=== PATIENT | male | born 1940 | race Caucasian/White ===

== ENCOUNTER → 2017-12-06 | Outpatient (CLI) | payer MEDICARE ==
[~2017-12-06] MED LIST: AMLO10TA2 PO; ASPI-891 PO; CALC600T12 PO; CALC667T5 PO; CELE-84 PO; CLOP75TA32 PO; FISH1CAP63 PO; GABA-531 PO; LOSA50TA37 PO; MULT-1077 PO; PANT40TA PO; POTA99TA4 PO; PRIM50TA29 PO; REGADENOSON 0.4 MG/5 ML PF SYG IVP SCH; ROSU20TA PO; TRAZ-147 PO; VIT B12 PO
== END | disposition home or self-care (01) ==
LOC: SHCH 08:54
PROVIDERS: ATTEND Internal Medicine Cardiovascular Disease
DX: I10 Essential (primary) hypertension (principal); I20.9 Angina pectoris, unspecified
CPT/HCPCS: 78452; 93017; 96374; A9500 ×2; J2785

== ENCOUNTER → 2018-01-04 | Outpatient (CLI) | payer MEDICARE ==
[~2018-01-04] MED LIST changes: -REGADENOSON 0.4 MG/5 ML PF SYG IVP SCH
== END | disposition home or self-care (01) ==
LOC: RAH 13:43
PROVIDERS: ATTEND Nurse Practitioner Adult Health
DX: I35.0 Nonrheumatic aortic (valve) stenosis (principal); I70.90 Unspecified atherosclerosis; M79.89 Other specified soft tissue disorders; R06.02 Shortness of breath; R91.8 Other nonspecific abnormal finding of lung field
CPT/HCPCS: 71046; 93970

== ENCOUNTER 2018-01-07 08:18 | Day surgery (SDC) | payer MEDICARE ==
[~2018-01-07] VITALS: Ht 165.1 cm; Wt 71.9 kg
[~2018-01-07 08:18] MED LIST changes: +SODIUM CHLORIDE 0.9% 1000ML 1,000 ML IV ONE
[2018-01-07 09:50] VITALS: BP 140/68
[2018-01-07] MEDS ORDERED: PROPOFOL 10 MG/ML 20ML VIAL IV ONE ×2 (10:28)
[2018-01-07 10:51] VITALS: BP 111/46
== END 2018-01-07 11:35 ==
LOC: DAH 08:18
PROVIDERS: ATTEND Internal Medicine Gastroenterology
DX: K55.20 Angiodysplasia of colon without hemorrhage (principal); K57.30 Diverticulosis of large intestine without perforation or abscess without bleeding; K21.9 Gastro-esophageal reflux disease without esophagitis; K62.7 Radiation proctitis; D50.0 Iron deficiency anemia secondary to blood loss (chronic); I10 Essential (primary) hypertension; E78.5 Hyperlipidemia, unspecified; Z85.46 Personal history of malignant neoplasm of prostate; Z92.3 Personal history of irradiation; Z86.73 Personal history of transient ischemic attack (TIA), and cerebral infarction without residual deficits; K29.70 Gastritis, unspecified, without bleeding
CPT/HCPCS: 43239; 45334; 88305; 88312; 88342; 93005; A4606; J2704 ×2; J7030

== ENCOUNTER → 2018-01-13 | Outpatient (CLI) | payer MEDICARE ==
[~2018-01-13] MED LIST changes: -SODIUM CHLORIDE 0.9% 1000ML 1,000 ML IV ONE
== END | disposition home or self-care (01) ==
LOC: RAH 09:44
PROVIDERS: ATTEND Internal Medicine Gastroenterology
DX: K80.20 Calculus of gallbladder without cholecystitis without obstruction (principal); E88.89 Other specified metabolic disorders
CPT/HCPCS: 76700

== ENCOUNTER → 2018-02-04 | Outpatient (CLI) | payer MEDICARE | END | disposition home or self-care (01) | LOC: RAH 07:31 | PROVIDERS: ATTEND Internal Medicine | DX: J84.10 Pulmonary fibrosis, unspecified (principal); J47.9 Bronchiectasis, uncomplicated; K80.20 Calculus of gallbladder without cholecystitis without obstruction | CPT/HCPCS: 71250 ==

== ENCOUNTER → 2018-02-16 | Outpatient (CLI) | payer MEDICARE ==
[~2018-02-16] MED LIST changes: +ALBUTEROL SULFATE 0.083% 2.5 MG/3 ML INH IH ONE
== END | disposition home or self-care (01) ==
LOC: RESP 08:56
PROVIDERS: ATTEND Internal Medicine
DX: J44.9 Chronic obstructive pulmonary disease, unspecified (principal)
CPT/HCPCS: 94060; 94727; 94729

== ENCOUNTER → 2018-08-16 | Outpatient (CLI) | payer MEDICARE ==
[~2018-08-16] MED LIST changes: -ALBUTEROL SULFATE 0.083% 2.5 MG/3 ML INH IH ONE; -AMLO10TA2 PO; -ASPI-891 PO; -CALC600T12 PO; -CLOP75TA32 PO; -FISH1CAP63 PO; +FURO20TA4 PO; -LOSA50TA37 PO; -MULT-1077 PO; -PANT40TA PO; -POTA99TA4 PO; +PRED5TAB PO; +ROPI0.5T5 PO; -ROSU20TA PO; +SUCR1TAB2 PO; -TRAZ-147 PO; +TRAZ-187 PO; -VIT B12 PO
== END | disposition home or self-care (01) ==
LOC: RAH 07:37
PROVIDERS: ATTEND Nurse Practitioner Adult Health
DX: G93.0 Cerebral cysts (principal); G31.9 Degenerative disease of nervous system, unspecified; G93.89 Other specified disorders of brain; I10 Essential (primary) hypertension; E78.5 Hyperlipidemia, unspecified; Z72.89 Other problems related to lifestyle
CPT/HCPCS: 70551

== ENCOUNTER → 2018-08-31 | Outpatient (CLI) | payer MEDICARE | END | disposition home or self-care (01) | LOC: RAH 10:39 | PROVIDERS: ATTEND Nurse Practitioner Adult Health | DX: M51.37 Other intervertebral disc degeneration, lumbosacral region (principal); M48.061 Spinal stenosis, lumbar region without neurogenic claudication; N28.1 Cyst of kidney, acquired; M46.96 Unspecified inflammatory spondylopathy, lumbar region; M62.50 Muscle wasting and atrophy, not elsewhere classified, unspecified site; I10 Essential (primary) hypertension; E78.5 Hyperlipidemia, unspecified | CPT/HCPCS: 72148 ==

== ENCOUNTER 2019-03-21 12:25 | Inpatient (IN) | payer MEDICARE ==
[~2019-03-21] VITALS: Ht 172.7 cm; Wt 63.5 kg
[2019-03-21] MEDS ORDERED: CEFTRIAXONE SODIUM 1 GM ONE (13:10)
[2019-03-21] MEDS ORDERED: LEVOFLOXACIN 500 MG/D5W 100 ML 0 ML ONE (13:10)
[2019-03-21] MEDS ORDERED: ACETAMINOPHEN 325 MG TAB ONE (13:10)
[2019-03-21] MEDS ORDERED: SODIUM CHLORIDE 0.9% 100 ML IV ONE (13:11)
[2019-03-21 13:16] LABS: EOSINOPHILS % (AUTO) 0.3 % (0.0-8.0); NUCLEATED RED BLOOD CELLS 0.1 % (0.0-0.19)
[2019-03-21] MEDS ORDERED: LEVOFLOXACIN 750 MG/D5W 150 ML 150 ML ONE (13:20)
[2019-03-21 13:29] LABS: INR 1.02 (0.85-1.15); PARTIAL THROMBOPLASTIN TIME 26.6 SEC (26.3-35.5); POTASSIUM 4.5 mmol/L (3.5-5.1); PROTHROMBIN TIME 10.7 SEC (9.6-11.6)
[2019-03-21 13:36] LABS: APPEARANCE,URINE Clear (CLEAR); BILIRUBIN,URINE Negative (NEGATIVE); COLOR,URINE Yellow (YELLOW); GLUCOSE, URINE (UA) Negative (NEGATIVE); KETONES,URINE Negative (NEGATIVE); LEUKOCYTE ESTERASE ,URINE Negative (NEGATIVE); NITRATE,URINE Negative (NEGATIVE); OCCULT BLOOD,URINE Nonhemolyzed Trace (NEGATIVE); PROTEIN,URINE 300 mg/dL (NEGATIVE)
[2019-03-21 13:37] LABS: BASOPHILS % (AUTO) 0.2 % (0.0-5.0); HEMATOCRIT 46.9 % (42-54); LYMPHOCYTES % (AUTO) 6.4 % (21.0-51.0); MEAN CORPUSCULAR HEMOGLOBIN 32.1 pg (27.0-33.0); MEAN CORPUSCULAR HGB CONC 33.3 g/dL (32.0-36.0); MEAN CORPUSCULAR VOLUME 96.3 fL (79-99); MONOCYTES % (AUTO) 4.5 % (3.0-13.0); NEUTROPHILS % (AUTO) 88.6 % (40.0-77.0); PLATELET COUNT (AUTO) 196 K/uL (130-400); RED BLOOD CELL COUNT(AUTO) 4.87 MIL/uL (4.50-6.20); RED CELL DISTRIBUTION WIDTH 14.8 % (11.0-15.5); WHITE BLOOD COUNT (AUTO) 18.5 K/uL (4.8-10.8)
[2019-03-21 13:43] LABS: ALBUMIN 2.8 g/dL (3.5-5.0); BILIRUBIN,TOTAL 0.5 mg/dL (0.2-1.0); TOTAL PROTEIN, SERUM 8.2 g/dL (6.0-8.3); TROPONIN I 0.09 ng/mL (0.00-0.06)
[2019-03-21 14:07] LABS: BACTERIA,URINE Rare /HPF (None Seen); RBC,URINE 0-1 /HPF (0-1); SQUAMOUS EPITHELIAL CELL,UR 0-2 /HPF (0-2); WBC,URINE 0-1 /HPF (0-1)
[2019-03-21] MEDS ORDERED: AZITHROMYCIN 500MG+NS 250ML 250 ML IV SCH (15:15)
[2019-03-21] MEDS ORDERED: HYDRALAZINE HCL 20 MG/ML VIAL IV PRN (15:15)
[2019-03-21 17:05] VITALS: BP 133/75
[2019-03-21] MEDS: IPRATROPIUM/ALBUTEROL SULFATE 3 ML SOLUTION IH SCH ×2 (18:06→21:43)
[2019-03-21] MEDS ORDERED: METO-408 PO (18:39)
[2019-03-21] MEDS ORDERED: FINA5TAB41 PO (18:39)
[2019-03-21] MEDS ORDERED: NIFE30TA91 PO (18:39)
[2019-03-21] MEDS ORDERED: TRAM50TA4 PO (18:39)
[2019-03-21] MEDS ORDERED: PANT40TA25 PO (18:39)
[2019-03-21] MEDS ORDERED: ASPI-891 PO (18:39)
[2019-03-21] MEDS ORDERED: ATOR20TA65 PO (18:39)
[2019-03-21 19:22] VITALS: BP 161/71
[2019-03-21] MEDS: FAMOTIDINE 20MG TAB 20 MG TAB PO SCH (21:09)
[2019-03-21] MEDS: AZITHROMYCIN 500MG+NS 250ML 250 ML IV SCH (21:09)
[2019-03-21] MEDS: GUAIFENESIN 600 MG TABLET.ER PO SCH (21:09)
[2019-03-22] VITALS (7 sets, daily range): BP systolic 99–161; BP diastolic 52–95
[2019-03-22] MEDS: IPRATROPIUM/ALBUTEROL SULFATE 3 ML SOLUTION IH SCH ×6 (01:08→21:17)
--- NOTE | 2019-03-22 04:04 | NUR ---
PAIN Paged Jerod JACKSON,pt c/o headache.Tylenol ordered.He said he will review pt.s home meds entered in [facility].
[2019-03-22] MEDS ORDERED: ACETAMINOPHEN 325 MG TAB PO PRN (04:15)
[2019-03-22] MEDS ORDERED: TRAMADOL HCL 50 MG TABLET PO PRN (04:15)
[2019-03-22 05:04] LABS: HEMATOCRIT 44.1 % (42-54); MEAN CORPUSCULAR HEMOGLOBIN 31.1 pg (27.0-33.0); MEAN CORPUSCULAR HGB CONC 32.6 g/dL (32.0-36.0); MEAN CORPUSCULAR VOLUME 95.4 fL (79-99); PLATELET COUNT (AUTO) 213 K/uL (130-400); RED BLOOD CELL COUNT(AUTO) 4.62 MIL/uL (4.50-6.20); RED CELL DISTRIBUTION WIDTH 14.9 % (11.0-15.5); WHITE BLOOD COUNT (AUTO) 15.6 K/uL (4.8-10.8)
[2019-03-22 05:05] LABS: CREATININE 0.9 mg/dL (0.5-1.5); POTASSIUM 3.7 mmol/L (3.5-5.1)
--- NOTE | 2019-03-22 07:04 | NUR ---
MD Dr Sundar travis,informed of pt.s heart rate 130's,she ordered telemetry.
[2019-03-22] MEDS: ASPIRIN 325MG EC TAB 325 MG TABLET.DR PO SCH (09:00)
[2019-03-22] MEDS: GUAIFENESIN 600 MG TABLET.ER PO SCH ×2 (09:00→21:02)
[2019-03-22] MEDS: PRIMIDONE 50 MG TAB PO SCH ×2 (09:00→21:03)
[2019-03-22] MEDS: NIFEDIPINE ER 30 MG TAB PO SCH (09:00)
[2019-03-22] MEDS ORDERED: FINASTERIDE 5 MG TABLET PO SCH (09:00)
[2019-03-22] MEDS: GABAPENTIN 300 MG CAPSULE PO SCH (09:00)
[2019-03-22] MEDS ORDERED: TRAZODONE HCL 100 MG TABLET PO SCH (09:00)
[2019-03-22] MEDS: FAMOTIDINE 20MG TAB 20 MG TAB PO SCH ×2 (09:00→21:03)
[2019-03-22] MEDS: METOPROLOL TARTRATE 25 MG TAB PO SCH ×2 (09:00→21:02)
[2019-03-22] MEDS: PREDNISONE 5 MG TABLET PO SCH ×2 (09:00→21:03)
[2019-03-22] MEDS ORDERED: ENOXAPARIN SODIUM 40 MG/0.4 ML SYRINGE SQ SCH (09:00)
--- NOTE | 2019-03-22 10:00 | NUR ---
DYSPHAGIA EVAL COMPLETE. -S/S OF ASPIRATION. RECOMMEND MECHANICAL SOFT/CHOPPED, THIN LIQUID DIET; PILLS WHOLE WITH LIQUIDS. MBSS RECOMMENDED AT THIS TIME. PATIENT INFORMATION: Pt IS A 78 Y.O. MALE REFERRED FOR A BEDSIDE DYSPHAGIA EVALUATION SECONDARY TO C/O DIFFICULTY SWALLOWING FOODS AND LIQUIDS. AT BEDSIDE AND REPORTS Pt HAS INCREASED DIFFICULTY IN THE AFTERNOON DURING SUPPER. Pt CURRENTLY ADMITTED SECONDARY TO BRONCHITIS AND SHORTNESS OF BREATH. Pt HAS A PAST MEDICAL HISTORY SIGNIFICANT FOR CHRONIC INTERMITTENT DYSPHAGIA, POLYMYOSITIS, PULMONARY FIBROSIS, HYPERTENSION, HYPERLIPIDEMIA, DEPRESSION, GERD, BPH, PROSTATE CANCER, AND SLEEP APNEA. Pt WITH BASELINE HORSED VOCAL QUALITY AND WEAKNESS. REPORTS SHE HAS TO ASSIST Pt MANUALLY TO COUGH. EVALUATION: Pt PRESENTS WITH MILD PHARYNGEAL DYSPHAGIA CAUSED BY DELAYED PHARYNGEAL RESPONSE TIME WITH MULTIPLE SWALLOWS PER BOLUS. Pt WITH NO OVERT S/S OF ASPIRATION AT BEDSIDE. MBSS IS RECOMMENDED TO RULE OUT SILENT ASPIRATION. RECOMMENDATIONS: 1. MECHANICAL SOFT/CHOPPED, THIN LIQUID DIET; PILLS WHOLE WITH LIQUIDS. 2. COMPENSATORY STRATEGIES (PROPHYLAXIS): *SEATED AT 90 DEGREE ANGLE *ALTERNATE BITES AND SIPS *SLOW RATE *REMAIN UPRIGHT 30 MINUTES AFTER MEAL TIMES 3. MBSS G-CODES SWALLOWING: [id number] Addendum: 03/22/19 at 1225 by MOISÉS CRISTINA [facility] Amended: Links added.
[2019-03-22] MEDS: CEFTRIAXONE SODIUM 1 GM IVP SCH (10:45)
[2019-03-22] MEDS ORDERED: METOPROLOL TARTRATE 1 MG/ML 5ML VIAL IV PRN (11:24)
--- NOTE | 2019-03-22 12:26 | NUR ---
MBSS COMPLETE. -S/S OF ASPIRATION. RECOMMEND MECHANICAL SOFT/CHOPPED, THIN LIQUID DIET; PILLS WHOLE WITH LIQUIDS. PATIENT INFORMATION: Pt IS A 78 Y.O. MALE REFERRED FOR AN MBSS SECONDARY TO C/O DIFFICULTY SWALLOWING FOODS AND LIQUIDS. REPORTS Pt HAS INCREASED DIFFICULTY IN THE AFTERNOON DURING SUPPER. Pt CURRENTLY ADMITTED SECONDARY TO BRONCHITIS AND SHORTNESS OF BREATH. Pt HAS A PAST MEDICAL HISTORY SIGNIFICANT FOR CHRONIC INTERMITTENT DYSPHAGIA, POLYMYOSITIS, PULMONARY FIBROSIS, HYPERTENSION, HYPERLIPIDEMIA, DEPRESSION, GERD, BPH, PROSTATE CANCER, AND SLEEP APNEA. Pt WITH BASELINE HORSED VOCAL QUALITY AND WEAKNESS. REPORTS SHE HAS TO ASSIST Pt MANUALLY TO COUGH. MBSS INTERPRETATION: Pt PRESENTS WITH MILD PHARYNGEAL DYSPHAGIA CAUSED BY DELAYED PHARYNGEAL RESPONSE TIME, DECREASED PRESSURE GENERATION WITHIN THE PHARYNX, AND ENLARGED CRICOPHARYNGEUS MUSCLE WITH POSSIBLE BEGINNING OF ZENKER'S DIVERTICULUM, EVIDENCED BY POOLING IN THE VALLECULAE, MULTIPLE SWALLOWS PER BOLUS, RESIDUE IN POSTERIOR PHARYNGEAL WALL AND POOLING ABOVE CRICOPHARYNGEUS MUSCLE (NOT CLEARED WITH RE-SWALLOW). NO PENETRATION OR ASPIRATION PRESENT AT THE TIME OF THE MBSS. PLEASE NOTE Pt PRESENTS WITH INSTRUMENTATION AT C5-C7. TRIALS: 1. TSP PUREED: POOLING IN VALLECULAE AND ABOVE UES 2. TSP PUDDING: POOLING IN VALLECULAE AND ABOVE UES 3. THIN LIQUIDS VIA CUP SIP: CLEARED MOST OF POOLED RESIDUE IN VALLECULAE WITH SOME RESIDUE ABOVE UES 4. TSP MIXED TEXTURE: GOOD 5. THIN LIQUIDS VIA CUPS SIP: GOOD WITH SOME RESIDUE ABOVE UES RECOMMENDATIONS: 1. MECHANICAL SOFT/CHOPPED, THIN LIQUID DIET; PILLS WHOLE WITH LIQUIDS. 2. COMPENSATORY STRATEGIES (PROPHYLAXIS): *SEATED AT 90 DEGREE ANGLE *ALTERNATE BITES AND SIPS *SLOW RATE *REMAIN UPRIGHT 30 MINUTES AFTER MEAL TIMES 3. GI CONSULT ON AN OUTPATIENT BASIS SECONDARY TO POSSIBLE ZENKER'S DIVERTICULUM, G-CODES SWALLOWING: [id number] Addendum: 04/24/19 at 1235 by MOISÉS CRISTINA [facility] Amended: Links added.
--- NOTE | 2019-03-22 15:48 | NUR ---
INITIAL CMsbell cornejo, alone, spouse Tiffany had just left. Pt is alert and a little hard to understand, on oxygen, live with spouse, had wkr, rolling walker, cane, oxygen nebulizer, and cpap, no provider servies, and has mobility issues with frequent falls. Declined any placement, will return home. Primary RN and PT aware of pt's preference. Addendum: 03/23/19 at 1604 by FLORA BAEZ RN CM Amended: Links added.
[2019-03-22] MEDS: AZITHROMYCIN 500MG+NS 250ML 250 ML IV SCH (21:01)
[2019-03-22] MEDS: ROPINIROLE HCL 0.25 MG TABLET PO SCH (21:02)
[2019-03-22] MEDS: ATORVASTATIN CALCIUM 20 MG TABLET PO SCH (21:03)
[2019-03-23] MEDS: IPRATROPIUM/ALBUTEROL SULFATE 3 ML SOLUTION IH SCH ×6 (01:29→22:11)
[2019-03-23 04:43] LABS: BASOPHILS % (AUTO) 0.2 % (0.0-5.0); EOSINOPHILS % (AUTO) 0.2 % (0.0-8.0); HEMATOCRIT 40.5 % (42-54); LYMPHOCYTES % (AUTO) 4.6 % (21.0-51.0); MEAN CORPUSCULAR HGB CONC 33.5 g/dL (32.0-36.0); MEAN CORPUSCULAR VOLUME 95.4 fL (79-99); MONOCYTES % (AUTO) 6.9 % (3.0-13.0); NEUTROPHILS % (AUTO) 88.1 % (40.0-77.0); NUCLEATED RED BLOOD CELLS 0.1 % (0.0-0.19); PLATELET COUNT (AUTO) 179 K/uL (130-400); RED BLOOD CELL COUNT(AUTO) 4.25 MIL/uL (4.50-6.20); RED CELL DISTRIBUTION WIDTH 14.8 % (11.0-15.5); WHITE BLOOD COUNT (AUTO) 11.7 K/uL (4.8-10.8)
[2019-03-23 04:57] LABS: POTASSIUM 3.9 mmol/L (3.5-5.1)
[2019-03-23 08:00] VITALS: BP 133/75
[2019-03-23] MEDS: CEFTRIAXONE SODIUM 1 GM IVP SCH (09:57)
[2019-03-23] MEDS: ASPIRIN 325MG EC TAB 325 MG TABLET.DR PO SCH (09:57)
[2019-03-23] MEDS: GABAPENTIN 300 MG CAPSULE PO SCH (09:57)
[2019-03-23] MEDS: FAMOTIDINE 20MG TAB 20 MG TAB PO SCH ×2 (09:58→22:55)
[2019-03-23] MEDS: METOPROLOL TARTRATE 25 MG TAB PO SCH ×2 (09:58→22:55)
[2019-03-23] MEDS: PRIMIDONE 50 MG TAB PO SCH ×2 (09:58→22:55)
[2019-03-23] MEDS: PREDNISONE 5 MG TABLET PO SCH ×2 (09:58→22:55)
[2019-03-23] MEDS: NIFEDIPINE ER 30 MG TAB PO SCH (09:58)
[2019-03-23] MEDS: GUAIFENESIN 600 MG TABLET.ER PO SCH ×2 (09:58→22:55)
[2019-03-23 11:52] VITALS: BP 134/77
--- NOTE | 2019-03-23 13:04 | NUR ---
FOLLOW-UP. Pt TOLERATING P.O. DIET FOR MECHANICAL SOFT/CHOPPED, THIN LIQUIDS. CHARGE AUDITOR SPOKE WITH IRAM AND REITERATED RECOMMENDATION FOR GI CONSULT ON AN OUTPATIENT BASIS. NOT PRESENT AT BEDSIDE AT THIS TIME. Addendum: 03/23/19 at 1305 by MOISÉS CRISTINA, [facility] Amended: Links added.
[2019-03-23 16:00] VITALS: BP 118/64
--- NOTE | 2019-03-23 16:05 | NUR ---
JANICE REQUEST [facility] REP VISIT PT Met w Tiffany, spouse, states pt very reluctant to go anywhere, asked for rep from [facility] to explain program to pt. pt abbey used only a cane occaisionally, no wkr dependent and increasing shortness of breath. Call to [facility]. no LIZZ signed yet- will wait untill family/patient wants referral sent [facility] met with pt, states thinks he may say yes to rehba CM call to spouse, spouse states may agree in am, sign consent then and have referral initiated. Will defer to Cm in am. Addendum: 03/23/19 at 1608 by FLORA BAEZ RN CM Amended: Links added.
[2019-03-23 19:42] VITALS: BP 125/67
[2019-03-23] MEDS: AZITHROMYCIN 500MG+NS 250ML 250 ML IV SCH (22:54)
[2019-03-23] MEDS: ATORVASTATIN CALCIUM 20 MG TABLET PO SCH (22:55)
[2019-03-23] MEDS: ROPINIROLE HCL 0.25 MG TABLET PO SCH (22:55)
[2019-03-23] MEDS: TRAZODONE HCL 100 MG TABLET PO SCH (22:55)
[2019-03-23] MEDS: FINASTERIDE 5 MG TABLET PO SCH (22:55)
[2019-03-23 23:36] VITALS: BP 130/74
[2019-03-24] MEDS: IPRATROPIUM/ALBUTEROL SULFATE 3 ML SOLUTION IH SCH ×6 (01:32→21:29)
[2019-03-24 03:23] VITALS: BP 128/68
[2019-03-24 07:00] VITALS: BP 127/74
[2019-03-24] MEDS: PREDNISONE 5 MG TABLET PO SCH ×2 (09:31→20:47)
[2019-03-24] MEDS: CEFTRIAXONE SODIUM 1 GM IVP SCH (09:31)
[2019-03-24] MEDS: ASPIRIN 325MG EC TAB 325 MG TABLET.DR PO SCH (09:31)
[2019-03-24] MEDS: GABAPENTIN 300 MG CAPSULE PO SCH (09:32)
[2019-03-24] MEDS: NIFEDIPINE ER 30 MG TAB PO SCH (09:32)
[2019-03-24] MEDS: GUAIFENESIN 600 MG TABLET.ER PO SCH ×2 (09:32→20:47)
[2019-03-24] MEDS: PRIMIDONE 50 MG TAB PO SCH ×2 (09:32→20:47)
[2019-03-24] MEDS: METOPROLOL TARTRATE 25 MG TAB PO SCH ×2 (09:32→20:47)
[2019-03-24] MEDS: FAMOTIDINE 20MG TAB 20 MG TAB PO SCH ×2 (09:32→20:47)
[2019-03-24 11:00] VITALS: BP 108/71
--- NOTE | 2019-03-24 11:00 | NUR ---
cm note met with patient and with spouse amada. states has toured facility and now in agreement for referral. both pt and spouse in agreeement , choice letter obtained and LIZZ, referral faxed to [facility]. spoke to lanette here to do evaluation.
[2019-03-24 16:00] VITALS: BP 124/71
[2019-03-24 20:00] VITALS: BP 136/70
[2019-03-24] MEDS: AZITHROMYCIN 500MG+NS 250ML 250 ML IV SCH (20:46)
[2019-03-24] MEDS: FINASTERIDE 5 MG TABLET PO SCH (20:47)
[2019-03-24] MEDS: ROPINIROLE HCL 0.25 MG TABLET PO SCH (20:47)
[2019-03-24] MEDS: ATORVASTATIN CALCIUM 20 MG TABLET PO SCH (20:47)
[2019-03-24] MEDS: TRAZODONE HCL 100 MG TABLET PO SCH (20:47)
[2019-03-25 00:08] VITALS: BP 123/73
[2019-03-25] MEDS: IPRATROPIUM/ALBUTEROL SULFATE 3 ML SOLUTION IH SCH ×2 (01:18→07:02)
[2019-03-25 04:00] VITALS: BP 133/73
[2019-03-25 07:00] VITALS: BP 141/81
[2019-03-25 07:25] LABS: BASOPHILS % (AUTO) 0.4 % (0.0-5.0); EOSINOPHILS % (AUTO) 1.8 % (0.0-8.0); HEMATOCRIT 40.4 % (42-54); MEAN CORPUSCULAR HEMOGLOBIN 31.8 pg (27.0-33.0); MEAN CORPUSCULAR HGB CONC 32.8 g/dL (32.0-36.0); MEAN CORPUSCULAR VOLUME 96.9 fL (79-99); MONOCYTES % (AUTO) 11.4 % (3.0-13.0); NEUTROPHILS % (AUTO) 75.4 % (40.0-77.0); NUCLEATED RED BLOOD CELLS 0.1 % (0.0-0.19); PLATELET COUNT (AUTO) 232 K/uL (130-400); RED BLOOD CELL COUNT(AUTO) 4.17 MIL/uL (4.50-6.20); RED CELL DISTRIBUTION WIDTH 14.7 % (11.0-15.5); WHITE BLOOD COUNT (AUTO) 6.8 K/uL (4.8-10.8)
[2019-03-25 07:41] LABS: CREATININE 0.8 mg/dL (0.5-1.5); POTASSIUM 4.2 mmol/L (3.5-5.1)
[2019-03-25] MEDS: GUAIFENESIN 600 MG TABLET.ER PO SCH (08:36)
[2019-03-25] MEDS: ASPIRIN 325MG EC TAB 325 MG TABLET.DR PO SCH (08:36)
[2019-03-25] MEDS: NIFEDIPINE ER 30 MG TAB PO SCH (08:36)
[2019-03-25] MEDS: METOPROLOL TARTRATE 25 MG TAB PO SCH (08:36)
[2019-03-25] MEDS: GABAPENTIN 300 MG CAPSULE PO SCH (08:36)
[2019-03-25] MEDS: FAMOTIDINE 20MG TAB 20 MG TAB PO SCH (08:37)
[2019-03-25] MEDS: PREDNISONE 5 MG TABLET PO SCH (08:37)
[2019-03-25] MEDS: PRIMIDONE 50 MG TAB PO SCH (08:37)
[2019-03-25] MEDS: CEFTRIAXONE SODIUM 1 GM IVP SCH (08:37)
--- NOTE | 2019-03-25 09:00 | NUR ---
CM Note: [facility] acceptance Spoke to [facility], pt has acceptance, MOT filled out pending house super to sign, EMS arranged and faxed pending primary nurse to call [facility]. Primary nurse aware. CM to cont to follow up.
[2019-03-25 11:00] VITALS: BP 121/70
== END 2019-03-25 12:15 | DRG 871 ==
LOC: EDH 12:25 → OBSVTOIN 15:03 → EDHIP 15:03 → 3AH 17:05
PROVIDERS: ADMIT Internal Medicine; ATTEND Internal Medicine
DX: A41.9 Sepsis, unspecified organism (principal); J18.9 Pneumonia, unspecified organism; S06.5X0A Traumatic subdural hemorrhage without loss of consciousness, initial encounter; M33.20 Polymyositis, organ involvement unspecified; J20.9 Acute bronchitis, unspecified; J84.10 Pulmonary fibrosis, unspecified; E78.5 Hyperlipidemia, unspecified; G20 Parkinson's disease; I10 Essential (primary) hypertension; F32.9 Major depressive disorder, single episode, unspecified; K21.9 Gastro-esophageal reflux disease without esophagitis; W18.30XA Fall on same level, unspecified, initial encounter; Z99.81 Dependence on supplemental oxygen; Z87.891 Personal history of nicotine dependence; Z86.12 Personal history of poliomyelitis; Z82.5 Family history of asthma and other chronic lower respiratory diseases; Z82.49 Family history of ischemic heart disease and other diseases of the circulatory system; Z82.0 Family history of epilepsy and other diseases of the nervous system; Z79.52 Long term (current) use of systemic steroids; Z80.9 Family history of malignant neoplasm, unspecified; Z85.46 Personal history of malignant neoplasm of prostate; Y93.89 Activity, other specified; Y99.8 Other external cause status; Y92.009 Unspecified place in unspecified non-institutional (private) residence as the place of occurrence of the external cause
CPT/HCPCS: 36415; 70450; 71045; 74230; 80048; 80053; 81001; 82550; 83605; 83874; 84484; 85025; 85027; 85610; 85730; 87040; 87088; 87804; 92610; 92611; 93005; 94640; 94664; 97039; 99291; G0378; J0456; J0696; J1956; J3490; J7512